=== PATIENT | female | born 1950 | race Caucasian/White ===

== ENCOUNTER 2018-08-02 14:56 | Inpatient (IN) ==
[2018-08-02 19:33] LABS: Baso % (Auto) 0.6 % (0.0-2.0); Eos # (Auto) 0.2 th/mm3 (0.0-0.4); Eos % (Auto) 2.3 % (0.0-4.0); Hematocrit 37.5 % (35.0-46.0); Hemoglobin 12.4 gm/dL (11.6-15.3); Lymph # (Auto) 2.1 th/mm3 (1.0-4.8); Lymph % (Auto) 26.2 % (9.0-44.0); Mean Corpuscular HGB Conc 33.2 % (32.0-36.0); Mean Corpuscular Hemoglobin 27.9 pg (27.0-34.0); Mean Corpuscular Volume 84.2 fL (80.0-100.0); Mean Platelet Volume 10.5 fL (7.0-11.0); Mono # (Auto) 0.8 th/mm3 (0.0-0.9); Mono % (Auto) 9.6 % (0.0-8.0); Neut # (Auto) 4.8 th/mm3 (1.8-7.7); Neut % (Auto) 61.3 % (16.0-70.0); Platelet Count 204 th/mm3 (150-450); Red Blood Count 4.45 mil/mm3 (4.00-5.30); Red Cell Distribution Width 13.5 % (11.6-17.2); White Blood Count 7.8 th/mm3 (4.0-11.0)
[2018-08-02 19:55] LABS: Alanine Aminotransferase 126 U/L (10-53); Albumin 3.7 g/dL (3.4-5.0); Anion Gap 9 meq/L (5-15); Aspartate Aminotransferase 186 U/L (15-37); Blood Urea Nitrogen 15 mg/dL (7-18); Calcium 8.9 mg/dL (8.5-10.1); Carbon Dioxide 28.8 meq/L (21.0-32.0); Chloride 101 meq/L (98-107); Glomerular Filtration Rate 60 mL/min (>89); Glucose,Random 99 mg/dL (74-106); Magnesium 1.9 mg/dL (1.5-2.5); Potassium 3.7 meq/L (3.5-5.1); Sodium 139 meq/L (136-145)
[2018-08-02 20:05] LABS: Alkaline Phosphatase 74 U/L (45-117); Total Protein 8.6 g/dL (6.4-8.2)
--- NOTE | 2018-08-02 20:19 | ED ---
HPI General Chief Complaint: Psychiatric Symptoms Stated Complaint: Psych Eval Time Seen by Provider: 08/02/18 18:32 Source: patient and family Mode of arrival: ambulatory Limitations: altered mental status History of Present Illness HPI Narrative: The patient is 68 years old. She suffers with dementia. She was brought to the ED by her son who reports the patient is noncompliant with her medication. He for that reason requests that she be placed under [place]. Patient states that she does not take them sometimes due to forgetfulness. She states as well that she believes they are unhealthy. Upon further inquiry into suicidal homicidal ideation, patient reports intent to harm others however is somewhat nonspecific stating intent to harm the patient next door, the undersigned among other people and says so in a fairly lighthearted manner. Duration unknown. MD complaint: Reports altered mental status Onset (ago): unknown Duration: constant Related Data Home Medications Medication Instructions Recorded Confirmed amlodipine 2.5 mg PO DAILY 08/02/18 08/02/18 losartan 100 mg PO DAILY 08/02/18 08/02/18 pantoprazole [Protonix] 20 mg PO DAILY 08/02/18 08/02/18 sertraline 200 mg PO DAILY 08/02/18 08/02/18 Allergies Allergy/AdvReac Type Severity Reaction Status Date / Time penicillin G Allergy Severe Rash Verified 08/02/18 20:10 Review of Systems ROS Unobtainable ROS Unobtainable: unobtainable due to mental status PMFSH Medical History Medical History Dementia (Acute) GERD (gastroesophageal reflux disease) (Acute) Hypertension (Acute) Social History Social History Substance History: No History of Abuse Smoking Status: Cognitive impairment How Often Do You Have a Drink Containing Alcohol: Unable to Obtain Recent Travel in [facility] within the Last 8 Weeks: No Recent Out of Country Travel within the Last 8 Weeks: No Immunization History Tetanus Immunization: Unable to Assess Exam Narrative Exam Narrative: GENERAL: 68-year-old female pleasant well-nourished well- developed somewhat agitated/pleasantly demented SKIN: Focused skin assessment warm/dry. HEAD: Atraumatic. Normocephalic. EYES: Pupils equal and round. No scleral icterus. No injection or drainage. ENT: No nasal bleeding or discharge. Mucous membranes pink and moist. NECK: Trachea midline. No JVD. CARDIOVASCULAR: Regular rate and rhythm. No murmur appreciated. RESPIRATORY: No accessory muscle use. Clear to auscultation. Breath sounds equal bilaterally. GASTROINTESTINAL: Abdomen soft, non-tender, nondistended. Hepatic and splenic margins not palpable. MUSCULOSKELETAL: No obvious deformities. No clubbing. No cyanosis. No edema. NEUROLOGICAL: Answers questions however answers are somewhat nonspecific. Cranial nerves II through XII are normal. Patient is moving all extremities normally. Recent memory is difficult to ascertain due to mental status. Speech is normal. PSYCHIATRIC: Agitated. Reasonably cooperative. Attests intent to harm others. Course Initial Documented Vital Signs Temperature 97.7 F 08/02/18 15:21 Pulse Rate 89 08/02/18 15:21 Respiratory Rate 24 08/02/18 15:21 Blood Pressure 168/88 H 08/02/18 15:21 Pulse Oximetry 96 08/02/18 15:21 Last Documented Vital Signs Temperature 97.2 F L 08/03/18 17:42 Pulse Rate 77 08/03/18 17:42 Respiratory Rate 17 08/03/18 17:42 Blood Pressure 129/59 L 08/03/18 17:42 Pulse Oximetry 98 08/03/18 17:42 Medical Decision Making MDM Narrative Medical decision making narrative: Blood work shows mild elevation in LFTs which has been seen as far back as 2009. Workup was otherwise unremarkable. The patient is clear for evaluation by psychiatry service. Psych screen ordered. [place] paperwork completed by the undersigned. Medical Screen Exam Complete: Yes Emergency Medical Condition: Yes Differential Diagnosis Differential Diagnosis: Altered mental status/psychosis due to infection/ environmental exposure/metabolic abnormality, polypharmacy, alcohol abuse/ intoxication, illicit or prescribed drug abuse, malingering/secondary gain, non- organic psychiatric disease Lab Data Lab results reviewed: Yes I reviewed the patient's lab results. Result diagrams: 08/02/18 18:23 08/02/18 18:23 Lab Results 08/02/18 08/02/18 08/03/18 Range/Units 18:23 18:23 11:03 WBC 7.8 (4.0-11.0) th/mm3 RBC 4.45 (4.00-5.30) mil/mm3 Hgb 12.4 (11.6-15.3) gm/dL Hct 37.5 (35.0-46.0) % MCV 84.2 (80.0-100.0) fL MCH 27.9 (27.0-34.0) pg MCHC 33.2 (32.0-36.0) % RDW 13.5 (11.6-17.2) % Plt Count 204 (150-450) th/mm3 MPV 10.5 (7.0-11.0) fL Neut % (Auto) 61.3 (16.0-70.0) % Lymph % (Auto) 26.2 (9.0-44.0) % [place] % (Auto) 9.6 H (0.0-8.0) % Eos % (Auto) 2.3 (0.0-4.0) % Baso % (Auto) 0.6 (0.0-2.0) % Neut # (Auto) 4.8 (1.8-7.7) th/mm3 Lymph # (Auto) 2.1 (1.0-4.8) th/mm3 [place] # (Auto) 0.8 (0.0-0.9) th/mm3 Eos # (Auto) 0.2 (0.0-0.4) th/mm3 Baso # (Auto) 0.0 (0.0-0.2) th/mm3 WBC Differential . Differential Comment Auto diff final Sodium 139 (136-145) meq/L Potassium 3.7 (3.5-5.1) meq/L Chloride 101 (98-107) meq/L Carbon Dioxide 28.8 (21.0-32.0) meq/L Anion Gap 9 (5-15) meq/L BUN 15 (7-18) mg/dL Creatinine 0.92 (0.50-1.00) mg/dL Estimated GFR 60 L (>89) mL/min Random Glucose 99 (74-106) mg/dL Calcium 8.9 (8.5-10.1) mg/dL Magnesium 1.9 (1.5-2.5) mg/dL Total Bilirubin 0.7 (0.2-1.0) mg/dL AST 186 H (15-37) U/L ALT 126 H (10-53) U/L Alkaline Phosphatase 74 (45-117) U/L Total Protein 8.6 H (6.4-8.2) g/dL Albumin 3.7 (3.4-5.0) g/dL TSH 3.790 H (0.358-3.740) uIU/mL Urine Opiates Screen Neg (Neg) Ur Barbiturates Screen Neg (Neg) Ur Amphetamines Screen Neg (Neg) U Benzodiazepines Scrn Neg (Neg) Urine Cocaine Screen Neg (Neg) U Cannabinoids Screen Neg (Neg) Serum Alcohol Less than 3 (0-5) mg/dL Discharge Plan Discharge Disposition Patient Disposition: [facility] Patient Physicians Team ED Provider: Lc Mckeon Primary Care Provider: UNKNOWN, Attending Provider: Kervin Hunter Other Providers: Rodolfo Bradford ; Kervin Hunter Status ED Status: Left Department Discharge Information Discharge Date/Time: 08/03/18 12:07
[2018-08-03] MEDS ORDERED: Aluminum/Magnesium/Simethacone Susp 30 ML UDC PO PRN (10:29)
[2018-08-03] MEDS ORDERED: Bisacodyl 10 MG Supp RECTAL PRN (10:29)
[2018-08-03] MEDS: Pantoprazole Sodium 20 MG DR Tablet PO SCH (11:41)
[2018-08-03] MEDS: amLODIPine 5 MG Tablet PO SCH (11:41)
[2018-08-03 11:53] LABS: Amphetamine Screen,Urine Neg (Neg); Barbiturate Screen,Urine Neg (Neg); Cannabinoid Screen,Urine Neg (Neg); Cocaine Screen,Urine Neg (Neg)
[2018-08-03 11:54] LABS: Opiate Screen,Urine Neg (Neg)
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
[2018-08-03] MEDS ORDERED: Sod Chloride 0.9% Inj 1,000 ML IV.CONT SCH (18:30)
[2018-08-03] MEDS: Senna/Docusate Sodium 8.6/50 MG Tablet PO SCH (20:22)
[2018-08-04] MEDS: Senna/Docusate Sodium 8.6/50 MG Tablet PO SCH ×2 (08:23→20:07)
[2018-08-04] MEDS: Pantoprazole Sodium 20 MG DR Tablet PO SCH (08:23)
[2018-08-04] MEDS: amLODIPine 5 MG Tablet PO SCH (08:23)
--- NOTE | 2018-08-04 08:26 | P.PN ---
Subjective Interval history: Follow-up visit for elevated LFTs and abnormal TSH. Patient is seen and examined resting in bed with nurse at bedside. She is talkative this morning and is alert and oriented to self, place, time. Patient states that she came to the hospital because she was not "acting like herself". No acute concerns or complaints this morning from patient and nursing staff. Patient reports that she was told recently she had a fatty liver and had ultrasound done along with hepatitis testing which was negative. She reports that her primary care physician is a Dr. Cezar Ryan. She denies any alcohol abuse. Physical Exam Vital signs: Vital Signs 08/03/18 11:35 08/03/18 12:16 08/03/18 12:17 Temperature 99.2 F Pulse Rate 84 62 Respiratory Rate 18 14 Blood Pressure 147/67 H 147/63 H Pulse Oximetry 87 L 94 L 08/03/18 12:20 08/03/18 14:00 08/03/18 17:42 Temperature 97.2 F L Pulse Rate 77 Respiratory Rate 14 17 Blood Pressure 129/59 L Pulse Oximetry 96 98 08/04/18 06:25 Temperature 98.7 F Pulse Rate 91 H Respiratory Rate 18 Blood Pressure 131/62 Pulse Oximetry 91 L Intake & Output 08/03/18 08/04/18 08/04/18 18:59 06:59 18:59 Intake Total 1000 / 1000 960 / 960 Balance 1000 / 1000 960 / 960 Intake: IV 1000 / 1000 NS Inj 1,000 ML @ 100 mls/hr IV 1000 / 1000 .CONT .Q10H [facility] Rx#:[id number] Oral 960 / 960 Narrative: GENERAL: Well-nourished, well-developed female in no acute distress. SKIN: Warm and dry. HEAD: Normocephalic. EYES: No scleral icterus. No injection or drainage. NECK: Trachea midline. No JVD. CARDIOVASCULAR: Regular rate and rhythm without murmurs, gallops, or rubs. RESPIRATORY: Breath sounds equal bilaterally. No accessory muscle use. GASTROINTESTINAL: Abdomen obese, soft. +BS MUSCULOSKELETAL: No cyanosis, or edema. NEURO: Awake and alert with eyes closed however does open her eyes to command. Cranial nerves grossly intact. Oriented to self, place, time and situation. Moving all extremities. Results - Labs CBC & Chem 7: 08/02/18 18:23 08/04/18 09:52 Laboratory Results - last 24 hr 08/03/18 11:03 Urine Opiates Screen Neg Ur Barbiturates Screen Neg Ur Amphetamines Screen Neg U Benzodiazepines Scrn Neg Urine Cocaine Screen Neg U Cannabinoids Screen Neg Assessment and Plan - Plan 68 Y/O female with dementia, bipolar disorder admitted to the psych unit for manic episode. Hospitalist consulted for elevated LFTs and TSH Elevated LFT's: -Patient denies any alcohol abuse, toxicology screen negative on admission. -Reports fatty liver disease with recent ultrasound and hepatitis testing - s/p 1 L of NS at 100 cc/hr -Elevated LFTs likely due to fatty liver disease -Recheck LFTs with slight improvement Elevated TSH: Mild. Not clinically significant -Recheck TSH and free T4 within normal limits Hypokalemia, mild -Replace with p.o. KCl HTN: - Continue Amlodipine. BP acceptable - Continue to monitor Patient noted to be requiring oxygen via facemask -Check chest x-ray Bipolar disorder/Dementia: - Management per Psychiatry. DVT prophylaxis-early ambulation Discussed Condition With: Discussed with patient and RN
[2018-08-04 11:41] LABS: Calcium 8.1 mg/dL (8.5-10.1); Carbon Dioxide 28.9 meq/L (21.0-32.0); Potassium 3.4 meq/L (3.5-5.1)
[2018-08-04 11:45] LABS: Total Protein 7.5 g/dL (6.4-8.2)
[2018-08-04 11:49] LABS: Chol/HDL Ratio 3.66 Ratio; Free T4 (Free Thyroxine) 0.86 ng/dL (0.76-1.46); HDL Cholesterol 40.6 mg/dL (40.0-60.0); Thyroid Stimulating Hormone 0.767 uIU/mL (0.358-3.740)
--- NOTE | 2018-08-04 14:23 | P.CONPSY ---
Provisional Diagnosis Admission Date: August 03, 2018 10:45 [place] I.: Bipolar disorder type I, current episode manic vs schizoaffective disorder, bipolar type History of Present Illness Service: Psychiatry Consult date: 08/04/18 Requesting Physician: Mak Rivas Reason for Consult: Second opinion Primary Care Provider: UNKNOWN History of Present Illness: Patient is a 68-year-old woman, with a psychiatric diagnosis of dementia, bipolar disorder, who presented to the ED due to noncompliance of medications and vague homicidal ideations and bizarre behavior which patient upon evaluation in the ER was noted to have manic symptoms and required ETO x1 to address symptomatology and was transferred to the inpatient psychiatry unit and admitted under involuntary hospitalization for further stabilization. Patient is seen today for second opinion. Patient was noted to to be seeking some answers to questioning stating "I am feeling sooooo.. good" patient noted to be elated during interview labile at times patient is alert and oriented to person and date and partially to place stating she is at the hospital was unable to identify city or which hospital she is in. She states that she did not take an overdose that she wanted further reason for her hospitalization at this time. She recalls being seen at [facility] with recent medication changes. She denies any perceptional disturbances state her mood has been "better and better" continues to have racing thoughts at times and aware that she has pressured speech recently. Patient states that she had been sleeping very little stating that at times she does not feel like she needs to sleep. She reports tolerating medications well Review of Systems All other systems reviewed negative except as stated in HPI [facility] - History History Provided By: Patient, Medical Record - Medical History Medical History: Medical History (Last Updated 08/03/18 @ 21:53 by Rodolfo Bradford MD) Dementia GERD (gastroesophageal reflux disease) Hypertension - Tobacco History Smoking Status: Cognitive impairment - Alcohol History How Often Do You Have a Drink Containing Alcohol: Unable to Obtain - Substance Use History Substance History: No History of Abuse - Travel History Recent Travel in the [place] Within the Last 8 Weeks: No Recent Travel Out of the Country Within the Last 8 Weeks: No - Immunization History Tetanus Immunization: Unable to Assess Medications and Allergies Active Medications: Active Medications Al Hydrox/Mg Hydrox/Simethicone (Mag-Al Plus Susp Liq) 30 ml PO Q6H PRN PRN Reason: DYSPEPSIA Al Hydroxide/Mg Hydroxide (Milk Of Magnesia Liq) 30 ml PO Q12H PRN PRN Reason: Mild Constipation Amlodipine Besylate (Norvasc) 2.5 mg PO DAILY [facility] Last Admin: 08/04/18 08:23 Dose: 2.5 mg Bisacodyl (Dulcolax Supp) 10 mg RECTAL DAILY PRN PRN Reason: SEVERE CONSITIPATION Lactulose (Lactulose Liq) 30 ml PO DAILY PRN PRN Reason: SEVERE CONSITIPATION Pantoprazole Sodium (Protonix) 20 mg PO DAILY [facility] Last Admin: 08/04/18 08:23 Dose: 20 mg Senna/Docusate Sodium (Bri-Colace) 1 tab PO BID [facility] Last Admin: 08/04/18 08:23 Dose: 1 tab Sennosides (Senokot) 17.2 mg PO Q12H PRN PRN Reason: Moderate Constipation Allergies Allergy/AdvReac Type Severity Reaction Status Date / Time penicillin G Allergy Severe Rash Verified 08/02/18 20:10 Home Medications Medication Instructions Recorded Confirmed Type amlodipine 2.5 mg PO DAILY 08/02/18 08/02/18 History losartan 100 mg PO DAILY 08/02/18 08/02/18 History pantoprazole [Protonix] 20 mg PO DAILY 08/02/18 08/02/18 History sertraline 200 mg PO DAILY 08/02/18 08/02/18 History Exam Vital signs: Vital Signs 08/03/18 17:42 08/04/18 06:25 08/04/18 09:00 Temperature 97.2 F L 98.7 F Pulse Rate 77 91 H Respiratory Rate 17 18 Blood Pressure 129/59 L 131/62 Pulse Oximetry 98 91 L 92 L Intake & Output 08/03/18 08/04/18 08/04/18 18:59 06:59 18:59 Intake Total 1000 / 1000 1200 / 1200 Balance 1000 / 1000 1200 / 1200 Intake: IV 1000 / 1000 NS Inj 1,000 ML @ 100 mls/hr IV 1000 / 1000 .CONT .Q10H [facility] Rx#:[id number] Oral 1200 / 1200 Narrative: Patient not noted to be in acute distress, no gross motor abnormalities, no signs of tremor or EPS, no psychomotor agitation or retardation. - Constitutional no acute distress, obese, disheveled, cooperative Mental Status Examination Appearance: Disheveled, Malodorous Consciousness: Alert Orientation: Person, Place Speech: Pressured, Incoherent Language: Neologism, Other (clang associations) Fund of Knowledge: Inadequate Attention and Concentration: Easily distracted Memory: Impaired Mood: Manic Affect: Labile Thought Process & Associations: Loose associations, Tangential Thought Content: Racing thoughts, Delusional Hallucination Type: None Delusion Type: Bizarre, Paranoid Suicidal Ideation: No Suicidal Plan: No Suicidal Intention: No Homicidal Ideation: No Homicidal Plan: No Homicidal Intention: No Insight: Poor Judgment: Poor Assessment and Plan - Assessment (1) Bipolar 1 disorder Code(s): F31.9 - Bipolar disorder, unspecified Status: Acute - Plan Plan: Patient continues to endorse manic symptoms with pressured speech, disorganization, labile mood, racing thoughts and poor sleep but denying any perceptional disturbances at this time. We will continue current treatment as patient was recently restarted on medications. We will continue to monitor mood and behavior. Discharge planning in progress. Justification for Continued Inpatient Stay: At risk of further decompensation at lower level care.
--- NOTE | 2018-08-04 15:00 | ECG ---
Date Performed: 08/03/2018 Time Performed: 14:31:38 PTAGE: 68 years EKG: Sinus rhythm WITH OCCASIONAL VENTRICULAR PREMATURE COMPLEXES BORDERLINE ECG NO PREVIOUS TRACING DOCTOR: Esau Wren Interpretating Date/Time 08/04/2018 14:58:07
--- NOTE | 2018-08-04 16:34 | XR ---
EXAM DATE: 08/04/2018 4:21 PM EDT AGE/SEX: 68 years / Female INDICATIONS: Congestion. CLINICAL DATA: This is the patient's initial encounter. Patient reports that signs and symptoms have been present for 2 days and indicates a pain score of 0/10. MEDICAL/SURGICAL HISTORY: None. None. COMPARISON: POI, XR CHEST PA AND LAT, 02/15/2018. . FINDINGS: Portable AP view of the chest demonstrates a normal-sized cardiac silhouette. No effusion, consolidat ion, or pneumothorax is identified. There is mild atelectasis at the lung bases. The bones and soft t issues demonstrate no acute finding. CONCLUSION: No acute cardiopulmonary abnormality is identified. Electronically signed by: Dominick Samuels MD 08/04/2018 4:33 PM EDT
[2018-08-04 16:45] LABS: Hemoglobin A1c 5.9 % (4.3-6.0)
[2018-08-05] MEDS: amLODIPine 5 MG Tablet PO SCH (08:23)
[2018-08-05] MEDS: Senna/Docusate Sodium 8.6/50 MG Tablet PO SCH ×2 (08:23→21:36)
[2018-08-05] MEDS: Pantoprazole Sodium 20 MG DR Tablet PO SCH (08:23)
--- NOTE | 2018-08-05 08:35 | P.PN ---
Subjective Interval history: Follow-up visit for elevated LFTs and abnormal TSH. Patient seen and examined sitting up in bed eating breakfast this morning with nurse at bedside. Patient is talkative this morning and states that she is feeling "wonderful". She denies any fevers, chills, nausea, vomiting, diarrhea, abdominal pain or discomfort. She states that she would stay here in the hospital as long as she could but she has at home that she lives in. She voices no acute concerns or complaints at the moment. Physical Exam Vital signs: Vital Signs 08/04/18 09:00 08/04/18 17:49 Temperature 98.2 F Pulse Rate 88 Respiratory Rate 17 Blood Pressure 145/71 H Pulse Oximetry 92 L 93 L Intake & Output 08/04/18 08/05/18 08/05/18 18:59 06:59 18:59 Intake Total 1680 / 1680 360 / 360 Balance 1680 / 1680 360 / 360 Weight 88.5 kg Intake: Oral 1680 / 1680 360 / 360 Other: # Voids 1 # Bowel Movements 1 Narrative: GENERAL: Well-nourished, well-developed female in no acute distress. SKIN: Warm and dry. HEAD: Normocephalic. EYES: No scleral icterus. No injection or drainage. NECK: Trachea midline. CARDIOVASCULAR: Regular rate and rhythm without murmurs, gallops, or rubs. RESPIRATORY: Breath sounds equal bilaterally. No accessory muscle use. GASTROINTESTINAL: Abdomen obese, soft. +BS MUSCULOSKELETAL: No cyanosis, or edema. NEURO: Awake and alert. Cranial nerves grossly intact. Oriented to self, place , time and situation. Moving all extremities. Results - Labs CBC & Chem 7: 08/02/18 18:23 08/04/18 09:52 Laboratory Results - last 24 hr 08/04/18 08/04/18 08/04/18 09:52 09:52 09:52 Sodium 144 Potassium 3.4 L Chloride 107 Carbon Dioxide 28.9 Anion Gap 8 BUN 20 H Creatinine 0.94 Estimated GFR 59 L Random Glucose 104 Hemoglobin A1c 5.9 Calcium 8.1 L D Total Bilirubin 0.5 Direct Bilirubin 0.2 Indirect Bilirubin 0.3 AST 115 H ALT 90 H Alkaline Phosphatase 61 Total Protein 7.5 D Albumin 3.0 L D Triglycerides 111 Cholesterol 149 LDL Cholesterol, Calc 86 HDL Cholesterol 40.6 Cholesterol/HDL Ratio 3.66 TSH 0.767 Free T4 0.86 - Imaging Impressions Chest X-Ray 08/04/18 00:00 CONCLUSION: No acute cardiopulmonary abnormality is identified. Assessment and Plan - Plan 68 Y/O female with dementia, bipolar disorder admitted to the psych unit for manic episode. Hospitalist consulted for elevated LFTs and TSH Elevated LFT's: -Patient denies any alcohol abuse, toxicology screen negative on admission. -Reports fatty liver disease with recent ultrasound and hepatitis testing -Elevated LFTs likely due to fatty liver disease -LFT's trending down Elevated TSH: Mild. Not clinically significant -Recheck TSH and free T4 within normal limits Hypokalemia, mild -Replace with p.o. KCl -BMP tomorrow HTN: - Continue Amlodipine. BP acceptable - Continue to monitor Patient noted to be requiring oxygen via facemask -Chest x-ray with no acute findings, now on room air. Bipolar disorder/Dementia: - Management per Psychiatry. DVT prophylaxis-early ambulation Follow recheck on LFTs and BMP and likely sign off tomorrow was stable. Discussed Condition With: Patient and RN
--- NOTE | 2018-08-05 14:21 | P.TTN ---
- Patient Problems Problems: 1. Discharge planning 2. Medication compliance 3. Knowledge deficit 4. Lack of coping skills - Progress Toward Goals Provider Present: Dr. Anil Torre Provider Input: 08/04/2018; per doctor patient is a new admission and will be assess for treatment Nurse(s) Present: RN Nurse Input: 08/04/2018; patient is confused with disorganized thoughts, compliant with treatment Psychiatric Counselors Present: Randi Noguera [facility] Psychiatric Therapist Input: 08/04/2018; counselor will assess patient for neccessary dc planning/needs Group Spec/RT/OT/[place] Present: KARLI Blair Group Spec/RT/OT/[place] Input: 08/04/2018; patient is a new admit, she will be assess for appropriate groups and activities - Documentation Teaching Recipient: Patient
--- NOTE | 2018-08-05 14:28 | P.PNPSY ---
Subjective Remarks: Patient seen for follow-up, chart reviewed. Discussion with nursing staff reported that patient patient be followed by hospitalist and likely medically cleared by tomorrow. Patient also noted to continue to have auditory visual hallucinations. Patient was found sitting in hospital chair eating lunch and noted to be talking to self, having conversation to self and laughing times. Patient later acknowledged newspaper writer's presence along with nurse when asked who she was tied to she states "whoever can hear me". She reports sleeping well continues to have racing thoughts but states that it is lessening and denying any auditory hallucinations despite noted to be responding to internal stimuli. Patient continues report seeing objects "wiggle and wave" which patient noted to be with her eyes closed's frequently and she states this keeps her from noticing these visual hallucinations. When asked about her mood she states "soooo.. blessed"patient continues to be noted to be very elated during interview. Review of Systems All other systems reviewed negative except as stated in HPI Mental Status Examination Appearance: Disheveled Consciousness: Alert Orientation: Person, Place Speech: Pressured, Incoherent Language: Neologism, Other (clang associations) Fund of Knowledge: Inadequate Attention and Concentration: Easily distracted Memory: Impaired Mood: Manic Affect: Labile Thought Process & Associations: Loose associations, Tangential Thought Content: Racing thoughts, Delusional Hallucination Type: None Delusion Type: Bizarre, Paranoid Suicidal Ideation: No Suicidal Plan: No Suicidal Intention: No Homicidal Ideation: No Homicidal Plan: No Homicidal Intention: No Insight: Poor Judgment: Poor Assessment and Plan - Assessment (1) Bipolar 1 disorder Code(s): F31.9 - Bipolar disorder, unspecified Status: Acute - Plan Plan: Patient continues with labile mood, noted be very elated during interview, continues with racing thoughts and pressured speech, we will continue with lithium 300 mg p.o. twice daily and quetiapine 12.5 mg p.o. twice daily for mood stabilization and psychosis. Patient recent EKG showed QTC of 470 ms. Continue current treatment. Continue to monitor mood and behavior. Discharge planning in progress. Justification for Continued Inpatient Stay: At risk of further decompensation at lower level care.
[2018-08-05] MEDS: QUEtiapine 25 MG Tablet PO SCH ×2 (14:53→21:35)
[2018-08-06] MEDS ORDERED: amLODIPine 5 MG Tablet PO SCH (07:26)
--- NOTE | 2018-08-06 08:59 | P.PN ---
Subjective Interval history: Follow-up visit for elevated LFTs and HTN. Patient is seen and examined sitting up on the side of the bed this morning having breakfast in no acute distress. She denies any headaches, dizziness, nausea, vomiting, diarrhea, cough, shortness of breath. She reports that she is feeling "wonderful" she voices no acute concerns or complaints. Nurses report any acute events overnight or this morning. Physical Exam Vital signs: Vital Signs 08/06/18 05:52 Temperature 96.3 F L Pulse Rate 109 H Respiratory Rate 16 Blood Pressure 176/84 H Pulse Oximetry 97 Intake & Output 08/05/18 08/06/18 08/06/18 18:59 06:59 18:59 Intake Total 240 / 240 240 / 240 Balance 240 / 240 240 / 240 Intake: Oral 240 / 240 240 / 240 Other: # Voids 2 Narrative: GENERAL: Well-nourished, well-developed female in no acute distress. SKIN: Warm and dry. HEAD: Normocephalic. EYES: No scleral icterus. No injection or drainage. NECK: Trachea midline. CARDIOVASCULAR: Regular rate and rhythm without murmurs, gallops, or rubs. RESPIRATORY: Breath sounds equal bilaterally. No accessory muscle use. GASTROINTESTINAL: Abdomen obese, soft. +BS MUSCULOSKELETAL: No cyanosis, or edema. NEURO: Awake and alert. Cranial nerves grossly intact. Oriented to self, place , time and situation. Moving all extremities. Results - Labs CBC & Chem 7: 08/02/18 18:23 08/06/18 07:59 Assessment and Plan - Plan 68 Y/O female with dementia, bipolar disorder admitted to the psych unit for manic episode. Hospitalist consulted for elevated LFTs and TSH Elevated LFT's: -Patient denies any alcohol abuse, toxicology screen negative on admission. -Reports fatty liver disease with recent ultrasound and hepatitis testing -Elevated LFTs likely due to fatty liver disease -LFT's trending down, LFT's continue to trend down, can follow-up as out patient. Elevated TSH: Mild. Not clinically significant -Recheck TSH and free T4 within normal limits Hypokalemia, mild -Replace with p.o. KCl -BMP stable K 3.9 HTN: -BP slightly elevated this morning, increase amlodipine to 5 mg daily - Continue to monitor Bipolar disorder/Dementia: - Management per Psychiatry. DVT prophylaxis-early ambulation If BP stable tomorrow, likely sign off. Discussed Condition With: Patient and RN
[2018-08-06 09:11] LABS: Albumin 3.4 g/dL (3.4-5.0); Carbon Dioxide 30.4 meq/L (21.0-32.0); Potassium 3.9 meq/L (3.5-5.1); Total Protein 8.2 g/dL (6.4-8.2)
[2018-08-06] MEDS: QUEtiapine 25 MG Tablet PO SCH ×2 (10:19→21:24)
[2018-08-06] MEDS: Senna/Docusate Sodium 8.6/50 MG Tablet PO SCH ×2 (10:20→21:24)
[2018-08-06] MEDS: Pantoprazole Sodium 20 MG DR Tablet PO SCH (10:21)
--- NOTE | 2018-08-06 12:40 | P.TTN ---
- Patient Problems Problems: 1. Discharge planning 2. Medication compliance 3. Knowledge deficit 4. Lack of coping skills - Progress Toward Goals Provider Present: Dr. Jennifer Hunter, Dr. Anil Torre Provider Input: 08/06/18: Medications being titrated per pt responses. 2017; per doctor patient is a new admission and will be assess for treatment Nurse(s) Present: RN Nurse Input: 08/06/18: Pt continues to present with significant self talk, confusion. 08/04/2018; patient is confused with disorganized thoughts, compliant with treatment Psychiatric Counselors Present: Armin Morrison Jr., [facility], Randi Noguera, [facility] Psychiatric Therapist Input: 08/04/2018; counselor will assess patient for neccessary dc planning/needs Group Spec/RT/OT/[place] Present: Ok Hinson OT, Herb Garza, [place] Group Spec/RT/OT/[place] Input: 08/06/18: Pt has been refusing to attend groups. ; patient is a new admit, she will be assess for appropriate groups and activities - Discharge Plan Discharge plan dependent on pt progress with treatment - Documentation Teaching Recipient: Patient
--- NOTE | 2018-08-06 15:54 | P.PNPSY ---
Subjective Remarks: Patient seen for follow-up, chart reviewed. Discussion with nursing staff reported that patient verbally hypersexual, noted to continue to talk to self, med compliant but refusing lithium. Patient was found sitting on chair, eating lunch, noted to be calm and cooperative. She states that she is sleeping well, with VH of objects moving but denying any AH although noted to be responding to internal stimuli. She states that she "wants to reach everyone" when asked who she is talking to as she was noted to be talking to self prior to interview. Patient noted to have some uatsdin preoccupation. Mood is "I've never been so blessed, I've never been so happy". She reports that she had visit with son. Review of Systems All other systems reviewed negative except as stated in HPI Mental Status Examination Appearance: Disheveled Consciousness: Alert Orientation: Person, Place Speech: Pressured Language: Adequate, Other (singing some responses) Fund of Knowledge: Inadequate Attention and Concentration: Easily distracted Memory: Impaired Mood: Manic Affect: Labile Thought Process & Associations: Loose associations, Tangential Thought Content: Racing thoughts, Delusional Hallucination Type: None Delusion Type: Bizarre, Paranoid Suicidal Ideation: No Suicidal Plan: No Suicidal Intention: No Homicidal Ideation: No Homicidal Plan: No Homicidal Intention: No Insight: Poor Judgment: Poor Assessment and Plan - Assessment (1) Bipolar 1 disorder Code(s): F31.9 - Bipolar disorder, unspecified Status: Acute - Plan Plan: Patient continues with manic symptoms, will increase quetiapine to 50mg PO BID, start depakote 500mg PO BID for mood stabilization. Will continue to monitor and trend LFTs as depakote will be started, LFT mildly elevated and trending down. Continue rest of medications, continue recommendations as per primary medical team, continue to monitor mood and behavior. Discharge planning in progress. Justification for Continued Inpatient Stay: At risk for further decompensation at lower level of care.
[2018-08-06] MEDS: Divalproex 500 MG DR Tablet PO SCH (21:23)
--- NOTE | 2018-08-07 09:03 | P.PN ---
Subjective Interval history: Follow-up visit for hypertension. Patient seen and examined in her room with nurse at bedside. She voices no acute complaints and reports she is doing well today. Denies any headache, dizziness, fevers, chills or shortness of breath. No acute events reported overnight or this morning. Physical Exam Vital signs: Vital Signs 08/06/18 18:00 08/07/18 06:01 Temperature 97.8 F 97.4 F L Pulse Rate 77 69 Respiratory Rate 17 16 Blood Pressure 148/89 H 167/78 H Pulse Oximetry 94 L 93 L Intake & Output 08/06/18 08/07/18 08/07/18 18:59 06:59 18:59 Intake Total 2160 / 2160 840 / 840 Balance 2160 / 2160 840 / 840 Intake: Oral 2160 / 2160 840 / 840 Other: Post Void Residual 1 # Voids 1 Narrative: GENERAL: Well-nourished, well-developed female in no acute distress. SKIN: Warm and dry. HEAD: Normocephalic. EYES: No scleral icterus. No injection or drainage. NECK: Trachea midline. CARDIOVASCULAR: Regular rate and rhythm without murmurs, gallops, or rubs. RESPIRATORY: Breath sounds equal bilaterally. No accessory muscle use. GASTROINTESTINAL: Abdomen obese, soft. +BS MUSCULOSKELETAL: No cyanosis, or edema. NEURO: Awake and alert. Cranial nerves grossly intact. Oriented to self, place , time. Moving all extremities. Results - Labs CBC & Chem 7: 08/02/18 18:23 08/06/18 07:59 Laboratory Results - last 24 hr 08/06/18 07:59 Sodium 141 Potassium 3.9 Chloride 103 Carbon Dioxide 30.4 Anion Gap 8 BUN 21 H Creatinine 0.85 Estimated GFR 66 L Random Glucose 112 H Calcium 9.0 D Total Bilirubin 0.3 Direct Bilirubin 0.2 Indirect Bilirubin 0.1 AST 72 H ALT 73 H Alkaline Phosphatase 66 Total Protein 8.2 D Albumin 3.4 Assessment and Plan - Plan 68 Y/O female with dementia, bipolar disorder admitted to the psych unit for manic episode. Hospitalist consulted for elevated LFTs and TSH Elevated LFT's: -Patient denies any alcohol abuse, toxicology screen negative on admission. -Reports fatty liver disease with recent ultrasound and hepatitis testing -Elevated LFTs likely due to fatty liver disease -LFT's trending down, LFT's continue to trend down, can follow-up as out patient. Elevated TSH: Mild. Not clinically significant -Recheck TSH and free T4 within normal limits Hypokalemia, mild -Resolved HTN: -BP continues to be slightly elevated, increase Norvasc to 10 mg daily. - Continue to monitor Bipolar disorder/Dementia: - Management per Psychiatry. DVT prophylaxis-early ambulation Discussed Condition With: Patient and RN
[2018-08-07] MEDS: QUEtiapine 25 MG Tablet PO SCH ×2 (09:55→20:08)
[2018-08-07] MEDS: Pantoprazole Sodium 20 MG DR Tablet PO SCH (09:55)
[2018-08-07] MEDS: Divalproex 500 MG DR Tablet PO SCH ×2 (09:55→20:08)
[2018-08-07] MEDS: amLODIPine 10 MG Tablet PO SCH (09:55)
[2018-08-07] MEDS: Senna/Docusate Sodium 8.6/50 MG Tablet PO SCH ×2 (09:55→20:08)
--- NOTE | 2018-08-07 17:49 | P.PNPSY ---
Subjective Remarks: Patient was seen and case discussed with nursing. Patient remains disheveled and disorganized. Affect is quite euphoric and she continues to make an appropriate comments. She has hallucinations that objects are waving at her. She is talking to herself. She is oppositional with her lithium but is compliant with Depakote and Seroquel. Patient denies suicidal or homicidal ideation intent or plan Mental Status Examination Appearance: Disheveled Consciousness: Alert Orientation: Person, Place Speech: Pressured Language: Adequate, Other (singing some responses) Fund of Knowledge: Inadequate Attention and Concentration: Easily distracted Memory: Impaired Mood: Manic Affect: Labile Thought Process & Associations: Loose associations, Tangential Thought Content: Racing thoughts, Delusional Hallucination Type: None Delusion Type: Bizarre, Paranoid Suicidal Ideation: No Suicidal Plan: No Suicidal Intention: No Homicidal Ideation: No Homicidal Plan: No Homicidal Intention: No Insight: Poor Judgment: Poor Assessment and Plan - Assessment (1) Bipolar 1 disorder Code(s): F31.9 - Bipolar disorder, unspecified Status: Acute - Plan Plan: Continue current treatment plan Justification for Continued Inpatient Stay: Patient would decompensate in a less restrictive setting
[2018-08-08] MEDS: amLODIPine 10 MG Tablet PO SCH ×2 (05:50→09:44)
--- NOTE | 2018-08-08 08:58 | P.PN ---
Subjective Interval history: Follow-up visit for hypertension. Patient seen and examined in the shower this morning, concerns over heat rash on her bottoms. Patient denies any itching, no reports of fevers, chills. Patient has been in bed for several days with little ambulation. Blood pressure also noted to be elevated this morning, received dose of Norvasc earlier than scheduled. Physical Exam Vital signs: Vital Signs 08/07/18 17:55 08/08/18 06:01 08/08/18 06:14 Temperature 98.3 F 97.5 F L Pulse Rate 88 74 Respiratory Rate 17 17 Blood Pressure 129/66 185/87 H 131/64 Pulse Oximetry 99 93 L Intake & Output 08/07/18 08/08/18 08/08/18 19:59 06:59 18:59 Intake Total Balance Intake: Oral Other: # Voids Narrative: GENERAL: Well-nourished, well-developed female in no acute distress. SKIN: Warm and dry. Bilateral buttocks with flat bright red erythematous papules, no surrounding skin maceration or vesicles noted. HEAD: Normocephalic. EYES: No scleral icterus. No injection or drainage. NECK: Trachea midline. CARDIOVASCULAR: Regular rate and rhythm without murmurs, gallops, or rubs. RESPIRATORY: Breath sounds equal bilaterally. No accessory muscle use. GASTROINTESTINAL: Abdomen obese, soft. +BS MUSCULOSKELETAL: No cyanosis, or edema. NEURO: Awake and alert. Cranial nerves grossly intact. Oriented to self, place , time. Moving all extremities. Results - Labs CBC & Chem 7: 08/02/18 18:23 08/06/18 07:59 Assessment and Plan - Plan 68 Y/O female with dementia, bipolar disorder admitted to the psych unit for manic episode. Hospitalist consulted for elevated LFTs and TSH Elevated LFT's: -Patient denies any alcohol abuse, toxicology screen negative on admission. -Reports fatty liver disease with recent ultrasound and hepatitis testing -Elevated LFTs likely due to fatty liver disease -LFT's trending down, LFT's continue to trend down, can follow-up as out patient. Elevated TSH: Mild. Not clinically significant -Recheck TSH and free T4 within normal limits Hypokalemia, mild -Resolved HTN -BP slightly elevated, continue Norvasc 10 mg daily, will add low-dose hydralazine 10 mg twice daily -Continue to monitor and adjust medications accordingly Bipolar disorder/Dementia: - Management per Psychiatry. Buttocks heat rash -Keep area dry, patient encouraged to get out of bed, change positions and ambulate. DVT prophylaxis-early ambulation Discussed Condition With: Patient and RN
[2018-08-08] MEDS: Senna/Docusate Sodium 8.6/50 MG Tablet PO SCH ×2 (09:44→21:10)
[2018-08-08] MEDS: Divalproex 500 MG DR Tablet PO SCH ×2 (09:44→21:09)
[2018-08-08] MEDS: Pantoprazole Sodium 20 MG DR Tablet PO SCH (09:44)
[2018-08-08] MEDS: QUEtiapine 25 MG Tablet PO SCH ×2 (09:44→21:10)
--- NOTE | 2018-08-08 13:41 | P.PNPSY ---
Subjective Remarks: Patient was seen and case discussed with nursing. Patient remains elevated and disorganized. Continues to be manic and euphoric. She believes her objects waving at her during the day. She is refusing her lithium. Describes her mood today is "blessed.". Talking to herself and responding to internal stimuli Mental Status Examination Appearance: Disheveled Consciousness: Alert Orientation: Person, Place Speech: Pressured Language: Adequate, Other (singing some responses) Fund of Knowledge: Inadequate Attention and Concentration: Easily distracted Memory: Impaired Mood: Manic Affect: Labile Thought Process & Associations: Loose associations, Tangential Thought Content: Racing thoughts, Delusional Hallucination Type: None Delusion Type: Bizarre, Paranoid Suicidal Ideation: No Suicidal Plan: No Suicidal Intention: No Homicidal Ideation: No Homicidal Plan: No Homicidal Intention: No Insight: Poor Judgment: Poor Assessment and Plan - Assessment (1) Bipolar 1 disorder Code(s): F31.9 - Bipolar disorder, unspecified Status: Acute - Plan Plan: Continue current treatment plan Justification for Continued Inpatient Stay: Patient would decompensate in a less restrictive setting
[2018-08-08] MEDS: hydrALAZINE 10 MG Tablet PO SCH (21:09)
--- NOTE | 2018-08-09 08:38 | P.PN ---
Subjective Interval history: Follow-up visit for hypertension. Patient seen and examined sitting on the side of the bed eating breakfast this morning in no acute distress. Noted but talks erythema improved. Patient denies any dizziness, lightheadedness, shortness of breath, cough or chest pain. Encourage patient to get out of bed and ambulate. No other events reported by nursing staff. Physical Exam Vital signs: Vital Signs 08/08/18 10:32 08/08/18 18:29 08/09/18 06:00 Temperature 98.5 F 97.7 F Pulse Rate 81 93 H 16 L Respiratory Rate 20 16 Blood Pressure 135/72 148/83 H 122/65 Pulse Oximetry 95 96 Intake & Output 08/08/18 08/09/18 08/09/18 18:59 06:59 18:59 Intake Total 960 / 960 480 / 480 Balance 960 / 960 480 / 480 Weight 87.8 kg Intake: Oral 960 / 960 480 / 480 Other: # Voids 2 1 Narrative: GENERAL: Well-nourished, well-developed female in no acute distress. SKIN: Warm and dry. Bilateral buttocks with flat red erythematous papules, no surrounding skin maceration or vesicles noted. These are less erythematous today. HEAD: Normocephalic. EYES: No scleral icterus. No injection or drainage. NECK: Trachea midline. CARDIOVASCULAR: Regular rate and rhythm without murmurs, gallops, or rubs. RESPIRATORY: Breath sounds equal bilaterally. No accessory muscle use. GASTROINTESTINAL: Abdomen obese, soft. +BS MUSCULOSKELETAL: No cyanosis, or edema. NEURO: Awake and alert. Cranial nerves grossly intact. Oriented to self, place , time. Moving all extremities. Results - Labs CBC & Chem 7: 08/02/18 18:23 08/06/18 07:59 Assessment and Plan - Plan 68 Y/O female with dementia, bipolar disorder admitted to the psych unit for manic episode. Hospitalist consulted for elevated LFTs and TSH Elevated LFT's: -Patient denies any alcohol abuse, toxicology screen negative on admission. -Reports fatty liver disease with recent ultrasound and hepatitis testing -Elevated LFTs likely due to fatty liver disease -LFT's trending down, LFT's continue to trend down, can follow-up as out patient. Elevated TSH: Mild. Not clinically significant -Recheck TSH and free T4 within normal limits Hypokalemia, mild -Resolved HTN -Blood pressure improved. Patient to continue Norvasc 10 mg daily and hydralazine 10 mg twice a day Bipolar disorder/Dementia: - Management per Psychiatry. Buttocks heat rash -Keep area dry, patient encouraged to get out of bed, change positions and ambulate. -Erythema improved, barrier ointment as needed. DVT prophylaxis-early ambulation Patient is medically stable. H will sign off, please reconsult if needed. Discussed Condition With: Patient and RN
[2018-08-09] MEDS: Pantoprazole Sodium 20 MG DR Tablet PO SCH (10:02)
[2018-08-09] MEDS: amLODIPine 10 MG Tablet PO SCH (10:02)
[2018-08-09] MEDS: QUEtiapine 25 MG Tablet PO SCH ×2 (10:02→20:27)
[2018-08-09] MEDS: hydrALAZINE 10 MG Tablet PO SCH ×2 (10:03→20:26)
[2018-08-09] MEDS: Senna/Docusate Sodium 8.6/50 MG Tablet PO SCH ×2 (10:03→20:26)
[2018-08-09] MEDS: Divalproex 500 MG DR Tablet PO SCH ×2 (10:03→20:26)
--- NOTE | 2018-08-09 15:51 | P.PNPSY ---
Subjective Remarks: Patient seen for follow-up, chart reviewed. Discussion with nursing staff reported that patient still talking to self but no aggressive behavior. Patient was found sitting in hospital chair noted B, cooperative. Patient states that her weekend went "wonderful" part", reports sleeping well, no difficulty eating and drinking. Patient states that she feels that she is able to organize her thoughts a little more but continues her noted that her heart starts continue to be racing at times. She states she spoke with her son over the weekend where she states went well. Patient continues during interview to be tangential, with elated mood but as per nursing report at times and sexually preoccupied. Review of Systems All other systems reviewed negative except as stated in HPI Mental Status Examination Appearance: Disheveled Consciousness: Alert Orientation: Person, Place Speech: Pressured Language: Adequate, Other (singing some responses) Fund of Knowledge: Inadequate Attention and Concentration: Easily distracted Memory: Impaired Mood: Manic Affect: Labile Thought Process & Associations: Loose associations, Tangential Thought Content: Racing thoughts, Delusional Hallucination Type: None Delusion Type: Bizarre, Paranoid Suicidal Ideation: No Suicidal Plan: No Suicidal Intention: No Homicidal Ideation: No Homicidal Plan: No Homicidal Intention: No Insight: Poor Judgment: Poor Assessment and Plan - Assessment (1) Bipolar 1 disorder Code(s): F31.9 - Bipolar disorder, unspecified Status: Acute - Plan Plan: Patient continues with elated mood with tangentiality and disorganization at times along with continued behaviors talking to self throughout the day. We will continue to titrate quetiapine to 50 mg p.o. twice daily with upper titration for mood stabilization. And we will order VPA level for tomorrow morning. Continue rest of medications. Continue to monitor mood and behavior. Discharge planning in progress. Justification for Continued Inpatient Stay: At risk of further decompensation at lower level care.
[2018-08-10] MEDS: hydrALAZINE 10 MG Tablet PO SCH ×2 (08:33→22:17)
[2018-08-10] MEDS: Pantoprazole Sodium 20 MG DR Tablet PO SCH (08:33)
[2018-08-10] MEDS: Senna/Docusate Sodium 8.6/50 MG Tablet PO SCH ×2 (08:33→22:16)
[2018-08-10] MEDS: amLODIPine 10 MG Tablet PO SCH (08:33)
[2018-08-10] MEDS: QUEtiapine 25 MG Tablet PO SCH ×2 (08:33→22:16)
[2018-08-10] MEDS: Divalproex 500 MG DR Tablet PO SCH ×2 (08:33→22:15)
[2018-08-10 12:39] LABS: Albumin 3.4 g/dL (3.4-5.0); Anion Gap 9 meq/L (5-15); Aspartate Aminotransferase 61 U/L (15-37); Blood Urea Nitrogen 19 mg/dL (7-18); Calcium 8.8 mg/dL (8.5-10.1); Chloride 103 meq/L (98-107); Glomerular Filtration Rate 56 mL/min (>89); Glucose,Random 100 mg/dL (74-106); Sodium 141 meq/L (136-145)
[2018-08-10 12:40] LABS: Alanine Aminotransferase 67 U/L (10-53)
[2018-08-10 12:43] LABS: Alkaline Phosphatase 63 U/L (45-117); Total Protein 8.4 g/dL (6.4-8.2)
--- NOTE | 2018-08-10 16:08 | P.PNPSY ---
Subjective Remarks: Patient seen for follow up; chart reviewed. Discussion with nursing staff reported the patient noted to be talking to each pill, alert and oriented x3, denying suicide ideations was noted to be calmer overnight patient had lab work this morning. Patient was found sitting in hospital chair eating breakfast noted B, cooperative. Patient states that she is sleeping well, denying any difficulty with eating or drinking or bowel movement. Patient state her mood is "better than yesterday" they have been noted to be elated and tangential but noticing with slightly less pressured speech today was able to maintain focus on conversation more today. Patient had agreed to lab work this morning which valproic acid level was found to be within therapeutic limits (64). Patient denies any perceptional services or delusions at this time. Review of Systems All other systems reviewed negative except as stated in HPI Mental Status Examination Appearance: Disheveled Consciousness: Alert Orientation: Person, Place Speech: Pressured Language: Adequate, Other (singing some responses) Fund of Knowledge: Inadequate Attention and Concentration: Easily distracted Memory: Impaired Mood: Manic (Lessening) Affect: Labile Thought Process & Associations: Loose associations, Tangential Thought Content: Racing thoughts (Lessening) Hallucination Type: None Delusion Type: Bizarre, Paranoid Suicidal Ideation: No Suicidal Plan: No Suicidal Intention: No Homicidal Ideation: No Homicidal Plan: No Homicidal Intention: No Insight: Poor Judgment: Poor Assessment and Plan - Assessment (1) Bipolar 1 disorder Code(s): F31.9 - Bipolar disorder, unspecified Status: Acute - Plan Plan: Patient this time continues to be hyperverbal, tangential with pressured speech but noted to be lessening at this time. We will continue to increase quetiapine to 75 g p.o. twice daily, will continue rest of medications. Patient recent VPA level was within therapeutic limits. We will continue to trend LFTs as they continue to trend down. We will continue to monitor mood and behavior. Discharge planning a progress. Justification for Continued Inpatient Stay: At risk of further decompensation at lower level care.
[2018-08-11] MEDS: Divalproex 500 MG DR Tablet PO SCH ×2 (08:47→21:34)
[2018-08-11] MEDS: hydrALAZINE 10 MG Tablet PO SCH ×2 (08:47→21:34)
[2018-08-11] MEDS: amLODIPine 10 MG Tablet PO SCH (08:47)
[2018-08-11] MEDS: QUEtiapine 25 MG Tablet PO SCH ×2 (08:48→21:34)
[2018-08-11] MEDS: Senna/Docusate Sodium 8.6/50 MG Tablet PO SCH ×2 (08:48→21:35)
[2018-08-11] MEDS: Pantoprazole Sodium 20 MG DR Tablet PO SCH (08:48)
--- NOTE | 2018-08-11 11:32 | P.PNPSY ---
Subjective Remarks: Patient seen for follow-up, chart reviewed. Discussion with nursing staff reported that patient no behavioral issues compliant with medication continues to ramble a bit but noted to be less, some visited last night. Patient was found sitting in hospital chair asleep but was able to wake up for interview. Patient states that she was visited by her son which went well and states that he had mentioned to her that "feels I am in the right place". She here she reports sleeping well with no problem with eating or drinking or bowel movement. Patient state her mood has been wonderful. Patient noted with less elated mood and affect noted to be more appropriate during conversation no longer noted to be talking to self prior to interview and appears to be improving. Review of Systems All other systems reviewed negative except as stated in HPI Mental Status Examination Appearance: Appropriate Consciousness: Alert Orientation: Person, Place Speech: Pressured Language: Adequate, Other (singing some responses) Fund of Knowledge: Inadequate Attention and Concentration: Easily distracted Memory: Impaired Mood: Manic (Lessening) Affect: Labile (Less so) Thought Process & Associations: Intact, Tangential (Minimal) Thought Content: Racing thoughts (Lessening) Hallucination Type: None Delusion Type: Paranoid (Minimal) Suicidal Ideation: No Suicidal Plan: No Suicidal Intention: No Homicidal Ideation: No Homicidal Plan: No Homicidal Intention: No Insight: Fair Judgment: Impulsive Assessment and Plan - Assessment (1) Bipolar 1 disorder Code(s): F31.9 - Bipolar disorder, unspecified Status: Acute - Plan Plan: Patient this time noted with improved mood, less pressured speech less tangentiality although continues to be slightly present. We will continue current treatment. We will continue to monitor mood and behavior. Collateral Korean pending from patient's son for son's perspective on how close patient is to baseline. Patient agrees to voluntary admission. Discharge planning a progress. Justification for Continued Inpatient Stay: At risk of further decompensation at lower level care.
[2018-08-12] MEDS: Divalproex 500 MG DR Tablet PO SCH ×2 (08:38→21:16)
[2018-08-12] MEDS: QUEtiapine 25 MG Tablet PO SCH ×2 (08:38→21:15)
[2018-08-12] MEDS: Pantoprazole Sodium 20 MG DR Tablet PO SCH (08:38)
[2018-08-12] MEDS: amLODIPine 10 MG Tablet PO SCH (09:09)
[2018-08-12] MEDS: Senna/Docusate Sodium 8.6/50 MG Tablet PO SCH ×2 (09:09→21:15)
[2018-08-12] MEDS: hydrALAZINE 10 MG Tablet PO SCH ×2 (09:09→21:16)
--- NOTE | 2018-08-12 17:39 | P.PNPSY ---
Subjective Remarks: Patient seen for follow-up, chart reviewed. Discussion with nursing staff reported that patient had some visited last evening had poor sleep and patient spoke with sister yesterday. Patient was found sitting hospital chair noted to be, cooperative. Patient states that she slept "alright" last night recalls having visited by his son and states "he thinks I am doing good". She agrees to walk around the unit and sit in the dayroom today and wear her casual clothing. Patient states that her thoughts are "better" denying any auditory visual hallucinations stating that her visual hallucinations a past no longer occur, "waving events gone". Patient no longer noted to be laughing and talking to self inappropriately as per report. Review of Systems All other systems reviewed negative except as stated in HPI Mental Status Examination Appearance: Appropriate Consciousness: Alert Orientation: Person, Place Speech: Pressured Language: Adequate, Other (singing some responses) Fund of Knowledge: Inadequate Attention and Concentration: Easily distracted Memory: Impaired Mood: Manic (Lessening) Affect: Labile (Improved) Thought Process & Associations: Intact, Tangential (Minimal) Thought Content: Appropriate Hallucination Type: None Delusion Type: None Suicidal Ideation: No Suicidal Plan: No Suicidal Intention: No Homicidal Ideation: No Homicidal Plan: No Homicidal Intention: No Insight: Fair Judgment: Impulsive Assessment and Plan - Assessment (1) Bipolar 1 disorder Code(s): F31.9 - Bipolar disorder, unspecified Status: Acute - Plan Plan: Patient noted be stabilizing noted to have less episodes of talking and laughing to self and appropriately, minimal episodes of elated mood during interview was noted to be with less pressured speech less tangential and more organized. We will continue current treatment. We will continue to monitor mood and behavior. We will coordinate with patient's son for appropriate discharge planning tomorrow, as attempts to reach patient's son has been unsuccessful.. Discharge planning in progress. Justification for Continued Inpatient Stay: At risk of further decompensation at lower level care.
[2018-08-13] MEDS: Pantoprazole Sodium 20 MG DR Tablet PO SCH (09:12)
[2018-08-13] MEDS: amLODIPine 10 MG Tablet PO SCH (09:12)
[2018-08-13] MEDS: hydrALAZINE 10 MG Tablet PO SCH ×2 (09:12→20:14)
[2018-08-13] MEDS: Senna/Docusate Sodium 8.6/50 MG Tablet PO SCH ×2 (09:12→20:13)
[2018-08-13] MEDS: Divalproex 500 MG DR Tablet PO SCH (09:12)
[2018-08-13] MEDS: QUEtiapine 25 MG Tablet PO SCH ×2 (09:13→20:13)
[2018-08-13 15:13] LABS: Alkaline Phosphatase 66 U/L (45-117); Total Protein 8.5 g/dL (6.4-8.2)
[2018-08-13 15:16] LABS: Alanine Aminotransferase 58 U/L (10-53); Albumin 3.3 g/dL (3.4-5.0); Anion Gap 7 meq/L (5-15); Aspartate Aminotransferase 66 U/L (15-37); Blood Urea Nitrogen 19 mg/dL (7-18); Calcium 8.9 mg/dL (8.5-10.1); Carbon Dioxide 30.8 meq/L (21.0-32.0); Chloride 102 meq/L (98-107); Glomerular Filtration Rate 67 mL/min (>89); Glucose,Random 99 mg/dL (74-106); Potassium 4.6 meq/L (3.5-5.1); Sodium 140 meq/L (136-145)
--- NOTE | 2018-08-13 16:17 | P.PNPSY ---
Subjective Remarks: Patient seen for follow-up, chart reviewed. Discussion with nursing staff reported that patient no further visual hallucinations reporting having slept well and continues with adequate appetite. Patient was found sitting hospital chair noted B, cooperative. Patient continues to be noted to have some tangentiality and flight of ideas but less recently. Patient continues to have difficulty maintaining focus on current conversation continues to have elevated mood and slightly pressured speech. Patient mentions having spoken to her sister over the phone which sister had told patient that she sounded different and not like herself. Collateral formation from patient's son also concurred that patient continues to be noted to be manic although improved but is concerned that she does not appear to be baseline. Review of Systems All other systems reviewed negative except as stated in HPI Mental Status Examination Appearance: Appropriate Consciousness: Alert Orientation: Person, Place Speech: Pressured Language: Adequate, Other (singing some responses) Fund of Knowledge: Inadequate Attention and Concentration: Easily distracted Memory: Impaired Mood: Manic (Lessening) Affect: Labile (Lessening), Other (Elevated at times) Thought Process & Associations: Intact, Loose associations, Tangential (Minimal) Thought Content: Appropriate Hallucination Type: None Delusion Type: None Suicidal Ideation: No Suicidal Plan: No Suicidal Intention: No Homicidal Ideation: No Homicidal Plan: No Homicidal Intention: No Insight: Fair Judgment: Impulsive Assessment and Plan - Assessment (1) Bipolar 1 disorder Code(s): F31.9 - Bipolar disorder, unspecified Status: Acute - Plan Plan: Patient continues with tangentiality, flight of ideas although redirectable continues to have some pressured speech and elated mood. We will continue to titrate Depakote to 500 mg a.m./750 mg at bedtime for mood stabilization continue rest of medications will order repeat CMP to continue to monitor LFTs. Continue to monitor mood and behavior. Discharge planning a progress. Justification for Continued Inpatient Stay: At risk of further decompensation at lower level care.
[2018-08-13] MEDS: Divalproex 250 MG DR Tablet PO SCH (20:14)
[2018-08-14] MEDS: QUEtiapine 25 MG Tablet PO SCH ×2 (08:37→20:52)
[2018-08-14] MEDS: hydrALAZINE 10 MG Tablet PO SCH ×2 (08:37→20:53)
[2018-08-14] MEDS: Senna/Docusate Sodium 8.6/50 MG Tablet PO SCH ×2 (08:37→20:53)
[2018-08-14] MEDS: Pantoprazole Sodium 20 MG DR Tablet PO SCH (08:37)
[2018-08-14] MEDS: amLODIPine 10 MG Tablet PO SCH (08:37)
[2018-08-14] MEDS: Divalproex 500 MG DR Tablet PO SCH (08:38)
--- NOTE | 2018-08-14 10:23 | P.PNPSY ---
Subjective Remarks: Patient seen in her room with nurse Corina, chart reviewed, patient compliant medication. Patient continues with rapid pressured speech she is quite intense tangential and circumstantial but overall no behavioral problems he is a somewhat confusing story about placement issues at this time Review of Systems All other systems reviewed negative except as stated in HPI Mental Status Examination Appearance: Appropriate Consciousness: Alert Orientation: Person, Place Speech: Pressured, Rapid Language: Adequate, Other (singing some responses) Fund of Knowledge: Inadequate Attention and Concentration: Easily distracted Memory: Impaired Mood: Manic (Lessening) Affect: Other (Increased range and intensity) Thought Process & Associations: Intact, Loose associations, Tangential (Minimal) Thought Content: Appropriate Hallucination Type: None Delusion Type: None Suicidal Ideation: No Suicidal Plan: No Suicidal Intention: No Homicidal Ideation: No Homicidal Plan: No Homicidal Intention: No Insight: Fair Judgment: Impulsive Assessment and Plan - Assessment (1) Bipolar 1 disorder Code(s): F31.9 - Bipolar disorder, unspecified Status: Acute - Plan Plan: Patient remains manic with rapid pressured speech some mild grandiosity and intrusiveness, though compliant medications. For now continue treatment Justification for Continued Inpatient Stay: At this time patient would decompensate if placed in a lower level of care Discharge Planning: To be determined
[2018-08-14] MEDS: Divalproex 250 MG DR Tablet PO SCH (20:53)
[2018-08-15] MEDS: Senna/Docusate Sodium 8.6/50 MG Tablet PO SCH ×2 (08:26→21:12)
[2018-08-15] MEDS: Divalproex 500 MG DR Tablet PO SCH (08:26)
[2018-08-15] MEDS: QUEtiapine 25 MG Tablet PO SCH ×2 (08:26→21:12)
[2018-08-15] MEDS: hydrALAZINE 10 MG Tablet PO SCH ×2 (08:28→21:12)
[2018-08-15] MEDS: Pantoprazole Sodium 20 MG DR Tablet PO SCH (08:28)
[2018-08-15] MEDS: amLODIPine 10 MG Tablet PO SCH (08:28)
--- NOTE | 2018-08-15 13:11 | P.PNPSY ---
Subjective Remarks: Patient was seen and case discussed with nursing. Patient is pleasant and cooperative with exam. She appears less elevated and pressured compared to our meeting last week. She denies suicidal or homicidal ideation intent or plan. She is compliant with her medications and behaving well on the unit. Mental Status Examination Appearance: Appropriate Consciousness: Alert Orientation: Person, Place Speech: Pressured, Rapid Language: Adequate, Other (singing some responses) Fund of Knowledge: Inadequate Attention and Concentration: Easily distracted Memory: Impaired Mood: Anxious Affect: Anxious Thought Process & Associations: Intact, Loose associations, Circumstantial Thought Content: Appropriate Hallucination Type: None Delusion Type: None Suicidal Ideation: No Suicidal Plan: No Suicidal Intention: No Homicidal Ideation: No Homicidal Plan: No Homicidal Intention: No Insight: Fair Judgment: Impulsive Assessment and Plan - Assessment (1) Bipolar 1 disorder Code(s): F31.9 - Bipolar disorder, unspecified Status: Acute - Plan Plan: Continue current treatment plan Justification for Continued Inpatient Stay: Patient would decompensate in a less restrictive setting
[2018-08-15] MEDS: Divalproex 250 MG DR Tablet PO SCH (21:12)
[2018-08-16] MEDS: hydrALAZINE 10 MG Tablet PO SCH ×2 (09:02→21:29)
[2018-08-16] MEDS: Pantoprazole Sodium 20 MG DR Tablet PO SCH (09:02)
[2018-08-16] MEDS: Divalproex 500 MG DR Tablet PO SCH (09:02)
[2018-08-16] MEDS: Senna/Docusate Sodium 8.6/50 MG Tablet PO SCH ×2 (09:03→21:29)
[2018-08-16] MEDS: QUEtiapine 25 MG Tablet PO SCH ×2 (09:03→21:29)
[2018-08-16] MEDS: amLODIPine 10 MG Tablet PO SCH (09:03)
--- NOTE | 2018-08-16 16:49 | P.PNPSY ---
Subjective Remarks: Patient seen for follow-up, chart reviewed. Discussion with nursing staff reported that patient patient noted be calmer and clear with interactions with nursing staff. Patient was found lying hospital asleep was able to wake up to interact with interview. Patient noted with no pressured speech, is able to interact appropriately with interview, no longer noted to be talking to self or with elated mood and appropriate. Patient mentions having visited by her son over the weekend which she states and mentioning wanting her to return home. She reports sleeping well, denies any perceptional services or delusions at this time. Patient denies any adverse drug reactions and reports tolerating medications well. Review of Systems All other systems reviewed negative except as stated in HPI Mental Status Examination Appearance: Appropriate Consciousness: Alert Orientation: Person, Place Speech: Pressured, Rapid Language: Adequate, Other (singing some responses) Fund of Knowledge: Inadequate Attention and Concentration: Easily distracted Memory: Impaired Mood: Appropriate Affect: Appropriate Thought Process & Associations: Intact, Goal directed, Linear Thought Content: Appropriate Hallucination Type: None Delusion Type: None Suicidal Ideation: No Suicidal Plan: No Suicidal Intention: No Homicidal Ideation: No Homicidal Plan: No Homicidal Intention: No Insight: Fair Judgment: Impulsive Assessment and Plan - Assessment (1) Bipolar 1 disorder Code(s): F31.9 - Bipolar disorder, unspecified Status: Acute - Plan Plan: Patient currently with improved mood, no longer tangential or disorganized and along with pressured speech. Patient noted with appropriate interactions and responses. We will order Depakote level as well as CMP to continue to trend LFTs tomorrow a.m. prior to discharge. Continue current treatment. Continue to monitor mood and behavior. Discharge planning a progress. Justification for Continued Inpatient Stay: At risk of further decompensation at lower level care.
[2018-08-16] MEDS: Divalproex 250 MG DR Tablet PO SCH (21:29)
[2018-08-17] MEDS: amLODIPine 10 MG Tablet PO SCH (09:41)
[2018-08-17] MEDS: Divalproex 500 MG DR Tablet PO SCH (09:41)
[2018-08-17] MEDS: QUEtiapine 25 MG Tablet PO SCH (09:41)
[2018-08-17] MEDS: Pantoprazole Sodium 20 MG DR Tablet PO SCH (09:41)
[2018-08-17] MEDS: Senna/Docusate Sodium 8.6/50 MG Tablet PO SCH (09:41)
[2018-08-17] MEDS: hydrALAZINE 10 MG Tablet PO SCH (09:42)
[2018-08-17 09:46] LABS: Albumin 3.1 g/dL (3.4-5.0); Anion Gap 8 meq/L (5-15); Aspartate Aminotransferase 57 U/L (15-37); Blood Urea Nitrogen 22 mg/dL (7-18); Calcium 8.4 mg/dL (8.5-10.1); Carbon Dioxide 30.6 meq/L (21.0-32.0); Chloride 100 meq/L (98-107); Glomerular Filtration Rate 59 mL/min (>89); Glucose,Random 146 mg/dL (74-106); Potassium 3.9 meq/L (3.5-5.1); Sodium 139 meq/L (136-145)
[2018-08-17 09:47] LABS: Alanine Aminotransferase 49 U/L (10-53)
[2018-08-17 09:49] LABS: Alkaline Phosphatase 67 U/L (45-117); Total Protein 8.1 g/dL (6.4-8.2); Valproic Acid 76 mcg/mL (50-100)
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
[2018-08-17 16:42] VITALS: BP 118/84; PULSE 85; RESP 16; TEMP 98.6; O2SAT 94
== END 2018-08-17 17:50 | disposition home or self-care (01) ==
LOC: NEPD 14:56 → NEDA 08-03 10:45 → H250 08-03 12:02 → H4EA 08-03 16:21
PROVIDERS: ADMIT Student in an Organized Health Care Education/Training Program; ATTEND Student in an Organized Health Care Education/Training Program